=== PATIENT | male | born 1970 | race Caucasian/White ===

== ENCOUNTER 2023-02-23 07:37 | Outpatient (CLI) | payer OTHER | END 2023-02-23 07:38 | disposition home or self-care (01) | LOC: CSHCT 07:37 | PROVIDERS: ATTEND Internal Medicine | DX: Z12.2 Encounter for screening for malignant neoplasm of respiratory organs (principal); Z87.891 Personal history of nicotine dependence | CPT/HCPCS: 71271 ==